=== PATIENT | male | born 1955 | race Caucasian/White ===

== ENCOUNTER → 2017-02-15 | Outpatient (CLI) | payer OTHER ==
[~2017-02-15] MED LIST: ALEVE220 MG PO; ALFALFA PO; ASPIRIN EC81 MG PO; BACTRIM DS1 TAB PO; CIALIS5 MG PO; CIPRO500 MG PO; CPAP INH; FLOMAX0.4 MG PO; FLONASE 50 MCG/16 GM NOSE; GLUCOSAMINE CH1 EAC3 PO; LIPITOR20 M1 PO; MEN'S ONE DAIL1 EACH PO; OPTIFLEX-C400 MG PO; SINGULAIR10 MG PO; TYLENOL EXTRA500 MG PO; ZYRTEC10 M3 PO
--- NOTE | ~2017-02-15 | ESTC ---
Cardiac Perfusion Imaging Demographics Patient Name SHIREEN Fitzpatrick Gender Male Patient Number [id number] Race Visit Number [id number] Ethnicity [employer] ID Room Number Accession Number [id number] Height 70 inches Date of 1955 Weight 205 pounds Interpreting Alexis Davis MD Date of study 02/15/2017 Physician Supervising /RANCHO Peterson NM Technologist Casey Scott APRN Ordering Physician Alexis Davis MD Stress chemical technician Stress ECG Reading Pio Peterson Nurse Wisnome Pimentel Physician YOLANDA Rowell RN Procedure Admit Source:Other. Procedure Type: Nuclear Stress Test:Exercise, Cardiolite Stress Test Procedure Start time: 02/15/2017 08:55 Indications: Chest pain and Dyslipidemia. Risk Factors The patient risk factors include:treated hypercholesterolemia and dyslipidemia. Conclusions Summary Cardiolite SPECT images demonstrates a mild reversible defect involving the inferolateral wall of mild severity. No evidence of underlying fixed defect. Normal TID ratio of 0.96 Gated images demonstrate normal left ventricular systolic function without inducible wall motion abnormalities. LVEF is 61% Stress Protocols Resting ECG RSR without ST or T wave changes. Resting HR:74 bpm Resting BP:131/78 mmHg Pre-stress physical exam: Lungs CTA. CV RRR without mummer. Stress Protocol:Exercise Peak HR:155 bpm HR response: Appropriate Peak BP:182/74 mmHg BP response: Appropriate Predicted HR: 160 bpm HR/BP product:60267 % of predicted HR: 97 Max exercise: 9.6 METS Test duration:07:46 min Reason for termination:Target heart rate Exercise effort:Good Perceived exertion:13 ECG Findings Sinus Tachycardia with ST depression V4, V5, V6 Arrhythmias No rhythm abnormality. Symptoms At 3 minutes complained of mild chest pain. The chest pain continued through the test. Chest pain got a little better at the end of stress. Relieved with rest. States this pain was not as bad as some days with exercise Stress Interpretation The electrocardiographic portion of the stress test was positive for ischemia. Blood pressure response was normal, heart rate response was normal for exertion. The Quiles Treadmill Score was -2. This corresponds to a intermediate risk stress test. Imaging Results Applied corrections - Motion correction applied High risk findings Summed scores - Summed stress score: 6 - Summed rest score: 4 - Summed difference score: 2 Stress ejection Ejection fraction:61 % EDV :89 ml ESV :35 ml Stroke volume :54 ml LV mass :130 gr Imaging Protocols Rest Stress Isotope:Tc99m Sestamibi IV Isotope: Tc99m Sestamibi IV Isotope dose:14.2 mCi Isotope dose:43.7 mCi Date:02/15/2017 07:51 Date:02/15/2017 09:43 Technique: SPECT Technique: Gated Supine SPECT Supine Scan Time:45-60 minutes post Scan Time:45-60 minutes post injection injection Medical History Admission Data Admission date: 02/15/2017 Admission Time: 07:27 Hospital Status: Outpatient. Signatures dtt: Ryan Espinoza (cardio) dtd: 02/15/17 0855 Physician Self Edit
== END | disposition disaster alternative care site (69) ==
LOC: GRAD 07:27
DX: R07.9 Chest pain, unspecified (principal); I51.89 Other ill-defined heart diseases
CPT/HCPCS: A9500

== ENCOUNTER → 2017-02-21 | Outpatient (CLI) | payer OTHER ==
[2017-02-21 16:09] LABS: BASOPHIL % 0.4 %; EOSINOPHIL # 0.2 K/uL (0.0-0.5); EOSINOPHIL % 4.5 %; HEMATOCRIT 41.1 % (37.0-53.0); HEMOGLOBIN 13.6 g/dL (11.0-16.0); IMMATURE GRANULOCYTE % 0.2 %; LYMPHOCYTE # 1.7 K/uL (0.8-4.0); MCH 29.6 pg (27.0-34.0); MCHC 33.1 gm/dL (32.0-36.5); MCV 89.3 fl (83.0-98.0); MONOCYTE # 0.6 K/uL (0.0-1.0); MONOCYTE % 10.4 %; MPV 9.1 fl (9.4-12.4); NEUTROPHIL # (ANC) 2.9 K/uL (1.4-9.0); NEUTROPHIL % 53.5 %; NRBC % 0 /100WBC (0-0.00); PLATELET COUNT 170 K/uL (150-450); RDW-CV 12.1 % (11.9-14.6); WBC 5.4 K/uL (4.0-11.0)
[2017-02-21 16:19] LABS: ALBUMIN 3.5 gm/dL (3.5-5.0); ANION GAP 10.1 (10.0-19.0); POTASSIUM 4.1 mMol/L (3.7-5.1)
== END ==
LOC: LCNC 15:52
PROVIDERS: Internal Medicine Interventional Cardiology
DX: R07.9 Chest pain, unspecified (principal)

== ENCOUNTER 2017-02-27 06:07 | Outpatient (CLI) | payer OTHER ==
[~2017-02-27] VITALS: Ht 177.8 cm; Wt 91.8 kg
--- NOTE | ~2017-02-27 | CATH ---
Cardiac Diagnostic + PCI Report Demographics Patient Name SHIREEN Fitzpatrick Gender Male Date of 1955 Age 61 year(s) Patient Number [id number] Date of Study 02/27/2017 Visit Number [id number] Room Number G63[address] [place] [id number] Ht 177.8 cm Wt 91.8 kg Referring Alexis Davis MD Primary Physician Physician Performing Alexis Davis MD Secondary Physician Physician Diagnostic Alexis Davis MD Assisting Physician Physician Interventional Alexis Davis MD Physician Dishcloth Folder Physician Findings and Conclusions Diagnostic Findings and Conclusion Intermediate proximal LAD Diagnostic Recommendations IFR LAD Interventional Findings and Conclusion IFR LAD 0.95 Interventional Recommendations Medical therapy routine post Angio-seal care Procedure Description The patient was brought to the diagnostic cardiac catheterization-EP laboratory in the fasting, non-sedated state. Informed consent was obtained in the written and verbal form after the risks and benefits were explained. The patient had no further questions and agreed to proceed. The planned puncture-incision site(s) were shaved and prepped with ChloraPrep and draped in the usual sterile manner. Conscious sedation, supplemental oxygen, and pain control medications were delivered by a registered nurse under physician guidance. Surface ECG rhythm, blood pressure measurement, and pulse oximetry were monitored throughout the procedure. Arterial access. The access site was infiltrated with lidocaine. The vessel was entered with the Seldinger technique. A sheath was advanced into the vessel and used for catheter placement. Selective left coronary angiography. A catheter was advanced into the left coronary vessel ostium under Fluoroscopic guidance. Contrast was injected by hand. Images were obtained in multiple projections. Selective right coronary angiography. A catheter was advanced into the right coronary vessel ostium under fluoroscopic guidance. Contrast was injected by hand. Images were obtained in multiple projections. Left heart catheterization. A catheter was advanced across the aortic valve to the left ventricle under fluoroscopic guidance. Resting hemodynamics were obtained. Arterial artery hemostasis was achieved. The patient was transferred to a regular nursing floor via cart accompanied by a nurse. The patient left the laboratory in stable condition. Diagnostic Cath Status: Elective Procedure Procedure Type Diagnostic procedure:Angiography:, Coronary Angios w/C PCI procedure:Additional Imaging:, FFR/iFR:, Initial Vessel Indications: Positive Nuclear: Intermediate. The procedure was explained in detail to the patient. Risks, complications and alternative treatments were reviewed. Written consent was obtained. Medications Reviewed with Patient prior to Procedure. Complications: Bleeding at Access Site. Angiographic Findings Dominance: Right Cardiac Arteries and Lesion Findings LMCA: Normal (0% Stenosis).large LAD: Abnormal.Large, proximal 50-60 lesion Lesion on Prox LAD: 50% stenosis reduced to 50%. Pre procedure OLIVIA III flow was noted. Post Procedure OLIVIA III flow was present. The guidewire cross was successful.The lesion was diagnosed as a moderate risk lesion.Culprit lesion. Devices used - Verrata Pressure Wire. Number of passes: 1. LCx: Normal (0% Stenosis).medium ok, non-dominant RCA: Normal (0% Stenosis).large domininant Coronary Tree Procedure Data Procedure Date Date: 02/27/2017Start: 08:03 AMEnd: 08:49 AM Entry Locations - Retrograde Percutaneous access was performed through the Right Femoral artery (Primary location). A 6 Fr sheath was inserted. Hemostasis was successfully obtained using Angio-Seal STS PLUS ([place]). Closure Comments: successful. Then started bleeding after sliding to bed. Procedure Medications Order and Administration + + + + + !Time !Medication !Dosage !Route ! + + + + + !02/27/2017 07:59 !Versed !1 mg !I.V. ! !AM ! ! ! ! + + + + + !02/27/2017 08:00 !Fentanyl !50 mcg !I.V. ! !AM ! ! ! ! + + + + + !02/27/2017 08:15 !Angiomax (Bivalirudin) !67.5 mg !I.V. bolus ! !AM !(ACC_5) ! ! ! + + + + + !02/27/2017 08:18 !Angiomax (Bivalirudin) !1.75 mg/kg/hr!I.V. drip ! !AM !(ACC_5) ! ! ! + + + + + !02/27/2017 08:27 !Angiomax (Bivalirudin) ! !I.V. drip ! !AM !(ACC_5) ! ! ! + + + + + Devices Used - A6 Fr. BS JL 4 Diag. Catheterwas used for:Left coronary angiography. - A6 Fr. BS JR 4 Diag. Catheterwas used for:RCA Intervention. - A6 Fr. BS Angled Pigtail Diag. Catheterwas used for:LV Pressures. - A6 Fr. XB 3.5 Guide Catheterwas used for:Fractional Flow Estelline measurments. Fluoroscopy Time: Diagnostic: 5:36 minutes. Total: 5:36 minutes. Fluoroscopy Dose: Diagnostic: 773 mGy. Total: 773 mGy. Estimated Blood Loss: 5 ml. Medical History Allergies - Penicillin. Risk Factors The patient risk factors include:hypercholesterolemia and dyslipidemia. Admission Data Admission Date: 02/27/2017 Admission Time: 06:07 AM Arrival Date: 02/27/2017 Arrival Time: 12:00 AM Admit Source: Other Insurance Payors: Private health insurance. Admission Medications + +------+------+ + + + + !Medication!Dosage!Times !Last !Last !Administered !Comments ! ! ! !Per !Delivery !Delivery ! ! ! ! ! !Day !Date !Time ! ! ! + +------+------+ + + + + !Aspirin ! ! !02/27/2017 !12:00 AM !Yes ! ! !(any) ! ! ! ! ! ! ! + +------+------+ + + + + !Statin ! ! !02/27/2017 !12:00 AM !Yes ! ! !(any) ! ! ! ! ! ! ! + +------+------+ + + + + Hemodynamics Condition: Rest O2 Consumption: Estimated: 249.12Heart Rate: 73 bpm Pressures (mmHg) +-----+ + !Site !Pressure ! +-----+ + !AO !107/63 (82) ! +-----+ + !LV !114/3 ,12 ! +-----+ + !LV !113/3 ,12 ! +-----+ + !AO !114/69 (91) ! +-----+ + !LV !112/3 ,11 ! +-----+ + Valve Gradients and Areas + +---------+---------+---------+ +---------+ + !Valve !Peak !Mean !Area !Index !Flow !Source ! + +---------+---------+---------+ +---------+ + !Aortic !0 !0 ! ! ! ! ! + +---------+---------+---------+ +---------+ + !Aortic !0 !0 ! ! ! ! ! + +---------+---------+---------+ +---------+ + Shunts Oxygen Values O2 Consumption 249.12 Discharge Data Discharge Date: 02/27/2017 Hospital Status: Outpatient Signatures dtt: Ryan Espinoza (cardio) dtd: 02/27/17802 Physician Self Edit
== END 2017-02-27 12:10 | disposition disaster alternative care site (69) ==
LOC: GPOC 06:07 → GPCU 06:07 → GPOC 12:10
PROC: 4A023N7 Measurement of Cardiac Sampling and Pressure, Left Heart, Percutaneous Approach (ICD-10-PCS; principal; 2017-02-27)
PROC: B216YZZ Fluoroscopy of Right and Left Heart using Other Contrast (ICD-10-PCS; 2017-02-27)
DX: I25.10 Atherosclerotic heart disease of native coronary artery without angina pectoris (principal)
CPT/HCPCS: C1760; C1769; C1887; J0583; J1644; J2001; J2250; J3010; J7030; J7060